=== PATIENT | female | born 1980 | race American Indian/Alaskan Native ===

== ENCOUNTER 2017-03-29 14:39 | Emergency (ER) | payer MEDICARE ==
[2017-03-29] MEDS ORDERED: Sodium Chloride 0.9% 1,000 ML IV ONE (15:55)
[2017-03-29] MEDS ORDERED: Sodium Chloride 0.9% 1,000 ML ONE (16:07)
[2017-03-29 16:26] LABS: BASO # 0.1 K/uL (0.0-0.2); BASO % 0.6 % (0.0-2.0); EOS # 0.2 K/uL (0.0-0.7); HEMATOCRIT 43.4 % (34.0-47.0); LYMPH # 2.8 K/uL (1.0-4.3); LYMPH % 26.4 % (20.0-40.0); MEAN CELL VOLUME 84.4 fL (81.0-99.0); MEAN CORPUSCULAR HEMOGLOBIN 26.9 pg (27.0-31.0); MEAN CORPUSCULAR HGB CONC 31.9 g/dL (33.0-37.0); MEAN PLATELET VOLUME 8.1 fL (7.2-11.7); MONO # 0.5 K/uL (0.0-0.8); MONO % 4.7 % (0.0-10.0); RED CELL DISTRIBUTION WIDTH 13.9 % (11.5-14.5); WHITE BLOOD COUNT 10.7 K/uL (4.8-10.8)
[2017-03-29 16:35] LABS: CHLORIDE 100 mmol/L (98-107)
[2017-03-29 16:36] LABS: POTASSIUM 4.1 mmol/L (3.6-5.2); RBC URINE 16 /hpf (0-3); SODIUM 136 mmol/L (132-148); URINE BACTERIA RARE (<OCC); URINE BILIRUBIN NEGATIVE (NEGATIVE); URINE BLOOD 1+ (NEGATIVE); URINE COLOR Yellow (YELLOW); URINE GLUCOSE (UA) NORMAL (Normal); URINE KETONE NEGATIVE (NEGATIVE); URINE LEUKOCYTE ESTERASE NEG Leu/uL (Negative); URINE PROTEIN NEGATIVE (NEGATIVE); URINE UROBILINOGEN NORMAL mg/dL (0.2-1.0); WBC URINE 2 /hpf (0-5)
[2017-03-29 16:38] LABS: BILIRUBIN,TOTAL 0.5 mg/dL (0.2-1.3); CARBON DIOXIDE 24 mmol/L (22-30); GFR AFRICAN-AMERICAN > 60
[2017-03-29 16:39] LABS: ALB/GLOB RATIO 1.5 (1.0-2.1); ALKALINE PHOSPHATASE 108 U/L (38-126); ALT/SGPT 49 U/L (9-52); AST/SGOT 57 U/L (14-36); BLOOD UREA NITROGEN 10 mg/dL (7-17); CALCIUM 8.8 mg/dl (8.6-10.4); GLUCOSE,RANDOM 105 mg/dL (65-105); TOTAL PROTEIN 7.5 g/dL (6.3-8.3)
--- NOTE | 2017-03-29 16:48 | C.PDOC ---
History Of Present Illness 36 year old female with PMH of endometriosis presents to ED with complaints of lower abdominal pain for 2 days. Patient describes pain as intermittent cramping to sharp pain in lower abdomen and radiates to back. Patient states she typically gets pain during her menses, however she already had menses 03/14-. Denies any fever, nausea, vomiting, diarrhea, constipation, dysuria, hematuria, vaginal discharge. Time Seen by Provider: 03/29/17 15:41 Chief Complaint (Nursing): Abdominal Pain History Per: Patient History/Exam Limitations: no limitations Onset/Duration Of Symptoms: Days (2) Current Symptoms Are (Timing): Still Present Severity: Moderate Quality Of Discomfort: Sharp, Cramping Past Medical History Reviewed: Historical Data, Nursing Documentation, Vital Signs Vital Signs: Last Vital Signs Temp 97.9 F 03/29/17 18:27 Pulse 64 03/29/17 18:27 Resp 20 03/29/17 18:27 BP 159/96 H 03/29/17 18:27 Pulse Ox 99 03/29/17 18:27 - Medical History PMH: HTN Family History: States: No Known Family Hx - Social History Hx Tobacco Use: Yes Hx Alcohol Use: Yes Hx Substance Use: No - Immunization History Hx Tetanus Toxoid Vaccination: Yes Hx Influenza Vaccination: No Hx Pneumococcal Vaccination: No Review Of Systems Except As Marked, All Systems Reviewed And Found Negative. Constitutional: Negative for: Fever, Chills Cardiovascular: Negative for: Chest Pain, Palpitations Gastrointestinal: Positive for: Abdominal Pain (lower). Negative for: Nausea, Vomiting Genitourinary: Negative for: Vaginal Discharge, Vaginal Bleeding Musculoskeletal: Positive for: Back Pain Physical Exam - Physical Exam Appears: Non-toxic, No Acute Distress (Uncomfortable) Skin: Warm, Dry, No Rash Head: Atraumatic, Normacephalic Eye(s): bilateral: Normal Inspection, PERRL, EOMI Nose: Normal Oral Mucosa: Moist Lips: Normal Appearing Neck: Normal ROM Chest: Symmetrical Cardiovascular: Rhythm Regular, No Murmur Respiratory: Normal Breath Sounds, No Accessory Muscle Use Gastrointestinal/Abdominal: Soft, Tenderness (Suprapubic) Back: No CVA Tenderness Extremity: Normal ROM Neurological/Psych: Oriented x3, Normal Speech ED Course And Treatment - Laboratory Results Result Diagrams: 03/29/17 16:20 03/29/17 16:20 O2 Sat by Pulse Oximetry: 98 - CT Scan/US US TRANSVAGINAL Other Rad Studies (CT/US): Read By Radiologist, Radiology Report Reviewed CT/US Interpretation: HISTORY: pelvic pain h.o endometriosis. COMPARISON: B 07/06/2013. TECHNIQUE: Transabdominal and transvaginal pelvic ultrasound was performed. FINDINGS: UTERUS: Measures 7.1 x 3.0 x 4.3 cm. Anteverted, normal in size and appearance. There is normal myometrial echotexture. No fibroid or other mass lesion seen. ENDOMETRIUM: Measures 7.2 mm in diameter. The central endometrial echo complex is normal in appearance. CERVIX: No cervical abnormality identified. RIGHT OVARY: History of right oophorectomy. LEFT OVARY: Measures 4.9 x 3.8 x 3.7 cm. No solid mass. Normal flow. There is a 2.4 cm simple cyst in the left ovary. FREE FLUID: No significant free fluid noted. OTHER FINDINGS: None. IMPRESSION: Normal pelvic ultrasound. Medical Decision Making Medical Decision Making: Impression: Pelvic pain Plan: * Labs * IV NS, Toradol * Pelvic US Progress: 1650 Patient continues to complain of pain, Morphine ordered. Labs reviewed and unremarkable. US pending 1757 US show ovarian cyst, no torsion or other acute abnormality. See full report. 1807 Patient reevaluated and reports pain mostly improved. Abdomen is soft and minimally tender. Vital signs stable. I discussed all results with patient and provide copy of US report. Recommend follow up with gyno in 1-3 days for further evaluation. Patient agreeable with plan for discharge and all questions answered. Patient stable for discharge home with Rx. Disposition Counseled Patient/Family Regarding: Studies Performed, Diagnosis, Need For Followup, Rx Given - Disposition Disposition: HOME/ ROUTINE Disposition Time: 18:08 Condition: STABLE Additional Instructions: Follow up with your primary medical doctor or camera systems engineer in 2-5 days for further evaluation. Take medications as needed for pain and may also take Aleve or Ibuprofen. Return to the emergency department at any time if symptoms persist or worsen. Prescriptions: traMADol [Ultram] 50 mg PO Q8 #20 tab Instructions: Pelvic Pain (ED) - POA Present On Arrival: None - Clinical Impression Clinical Impression: Ovarian cyst, Pelvic pain, History of endometriosis - Scribe Statement The provider has reviewed the documentation as recorded by the Scribe (Miguel Angel Carrera) All medical record entries made by the Scribe were at my direction and personally dictated by me. I have reviewed the chart and agree that the record accurately reflects my personal performance of the history, physical exam, medical decision making, and the department course for this patient. I have also personally directed, reviewed, and agree with the discharge instructions and disposition.
[2017-03-29] MEDS ORDERED: Morphine 4 MG/ML VIAL ONE (16:58)
--- NOTE | 2017-03-29 17:56 | US ---
HISTORY: pelvic pain h.o endometriosis COMPARISON: B 07/06/2013 TECHNIQUE: Transabdominal and transvaginal pelvic ultrasound was performed. FINDINGS: UTERUS: Measures 7.1 x 3.0 x 4.3 cm. Anteverted, normal in size and appearance. There is normal myometrial echotexture. No fibroid or other mass lesion seen. ENDOMETRIUM: Measures 7.2 mm in diameter. The central endometrial echo complex is normal in appearance. CERVIX: No cervical abnormality identified. RIGHT OVARY: History of right oophorectomy. LEFT OVARY: Measures 4.9 x 3.8 x 3.7 cm. No solid mass. Normal flow. There is a 2.4 cm simple cyst in the left ovary. FREE FLUID: No significant free fluid noted. OTHER FINDINGS: None. IMPRESSION: Normal pelvic ultrasound.
[2017-03-29 18:29] VITALS: BP 159/96; PULSE 64; RESP 20; TEMP 97.9
[2017-03-29 18:41] VITALS: O2SAT 98
== END 2017-03-29 18:27 | disposition home or self-care (01) ==
LOC: C.ER 14:39
DX: N83.209 Unspecified ovarian cyst, unspecified side (principal); R10.2 Pelvic and perineal pain; Z87.898 Personal history of other specified conditions
CPT/HCPCS: 76830; 76856; 80053; 81001; 84703; 85025; 96361; 96374; 96375; 99285; J1885; J2270; J7040